=== PATIENT | female | born 1950 | race Caucasian/White ===

== ENCOUNTER 2024-07-04 07:03 | Emergency (ER) | payer MEDICARE, SELFPAY ==
[2024-07-04 07:09] VITALS: BP 138/85
--- NOTE | 2024-07-04 07:51 | ED.GENMED ---
History of Present Illness
General
Chief Complaint: Breathing Problem
Time Seen by Provider: 07/04/24 07:36
History of Present Illness
History of Present Illness:
74-year-old female presents to the emergency department with her daughter for evaluation of cough and shortness of breath for the past 3 days. Has had hot flashes and sweats as well. Cough is productive of yellow-green mucus. Initially began with
nasal congestion and sore throat but those symptoms have resolved and she is primarily complaining of chest congestion. Known history of COPD, current smoker with greater than [id number] history. No chest pain or leg edema.
Past History
Past History
ED Past Medical History: HTN
ED Past Surgical History: and Orthopedic (Lumbar discectomy)
Social History
Tobacco: Smoker
Alcohol: Occasional
Drug: None
Personal: Single
Living: alone
Employment: Retired
Family History
Family History: Hypertension and CAD
Review of Systems
Review of Systems
Allergies reviewed?: Yes
All Other Systems: ROS reviewed and negative except as documented in HPI and ROS
Phy Exam
Physical Exam
Physical Exam:
GEN: Well appearing, NAD, WDWN
Eyes: PERRLA, EOMs intact, no scleral icterus
HENT: NCAT, oral mucosa moist
Lungs: Tachypneic, no accessory muscle use, diminished breath sounds diffusely with mild expiratory wheezes
Cardiac: RRR, no M/R/G, no peripheral edema. Radial pulses 2+ bilat
Neuro: AO x 3
MSK: No gross deformity or ecchymosis. No edema. No digital clubbing
Skin: No rashes, petechiae. Normal color, no pallor or jaundice.
Psych: Calm, cooperative, proper hygiene
Scores
Heart Failure Risk
Heart Failure Risk Score: Not Applicable
Sepsis
Sepsis Screening
Sepsis Assessment: Sepsis Ruled Out
Sepsis Screen
Sepsis Screen: Sepsis Ruled Out
Date: 07/04/24
Time: 13:49
Course
Orders/Labs/Results
Orders:
Orders
07/04/24 07:43
Ipratropium/Albuterol Sulfate [Duoneb] 3 ml INH R NOW ONE
07/04/24 07:44
CR Chest - 2 Views Urgent
Comment:
Reason For Exam: cough SOB
07/04/24 07:58
COVID-19 Antigen Urgent
Source: Nasal Swab
Complete Blood Count/With Diff Urgent
Lactic Acid Q4H
Comment: CANCEL 2nd LACTIC ACID IF 1st LACTIC ACID IS LESS THAN 2
Influenza A+B Rapid Molecular Urgent
ZAIN Source: Nasal Swab
Specimen Description:
07/04/24 07:59
Comprehensive Metabolic Panel Urgent
Blood Culture Q30M
ZAIN Source: Blood/Venous
Specimen Description:
07/04/24 08:35
Blood Culture Q30M
ZAIN Source: Blood/Venous
Specimen Description:
07/04/24 09:08
Dexamethasone Sod Phosphate [Decadron] 8 mg IV NOW STA
Abnormal Lab Results
07/04/24 07/04/24
07:58 07:59
Absolute Neuts (auto) 7.9 H 10^3/uL
(1.4-6.5)
Absolute Lymphs (auto) 1.1 L 10^3/uL
(1.2-3.4)
Absolute Monos (auto) 1.2 H 10^3/uL
(0.1-0.6)
Neutrophils % 76.4 H %
(42.2-75.2)
Lymphocytes % 10.3 L %
(20.5-51.1)
Monocytes % 11.4 H %
(1.7-9.3)
Glucose 122 H mg/dl
(70-99)
07/04/24 07:58
07/04/24 07:59
Vital Signs
Initial and Last Documented VS:
Initial Vital Signs
Temp Pulse Resp BP Pulse Ox
97.6 F 90 16 138/85 97
07/04/24 07:09 07/04/24 07:09 07/04/24 07:09 07/04/24 07:09 07/04/24 07:09
Last Documented Vital Signs
Temp Pulse Resp BP Pulse Ox
97.6 F 69 14 133/69 98
07/04/24 07:09 07/04/24 09:15 07/04/24 09:15 07/04/24 09:00 07/04/24 09:15
MDM/Problems Addressed
MDM/Problems Addressed:
Imaging is reassuring, labs unremarkable. Likely bacterial bronchitis evidenced by patient's likely history of COPD and productive cough with purulent sputum. Will cover with antibiotics and steroids. Encouraged outpatient pulm follow-up
*Critical Care Note
Total Time (30-74mins, 75-104mins- exclusive of procedures): Not Applicable
ED Attending Note
-
Portions of this chart may have been created with voice recognition software.� Occasional wrong word or��sound alike� substitutions may have occurred due to the inherent limitations of voice recognition software.
Discharge Plan
Departure
Patient Disposition: Home (Routine Discharge)
Date of Disposition: 07/04/24
Time of Disposition: 09:06
Patient with high blood pressure during this ER visit?: No
Discharge Problem:
Acute bronchitis
Instructions: Acute Bronchitis, Adult (DC)
Prescriptions:
New
methylprednisolone [Medrol (Eduardo)] 4 mg tablets,dose pack
See Rx Instructions .ROUTE .COMPLEX Qty: 21 0RF
Rx Instructions:
for 6 days
doxycycline hyclate 100 mg tablet
100 mg PO BID 5 Days Qty: 10 0RF
albuterol sulfate 90 mcg/actuation HFA aerosol inhaler
2 puff inhalation Q6H PRN (Reason: shortness of breath or wheezing) Qty: 8.5 0RF
No Action
hydralazine 25 MG tablet
25 mg PO QID
benazepril 20 MG tablet
20 mg PO BID
atenolol 50 MG tablet
50 mg PO DAILY
fexofenadine [Cely] 180 mg Tablet
180 mg PO DAILY
Referrals:
Tee Mike MD [Active] -
Activity Restrictions/Additional Instructions:
Begin the antibiotics today; begin the steroid prescription tomorrow
Follow up with pulmonology
Interventions
Interventions:
*Risk Screen - Suicide Last Done: 07/04/24 07:09
*Neglect/Abuse Screening Last Done: 07/04/24 07:09
*ED- Fall Risk Assessment Last Done: 07/04/24 08:00
*ED COVID-19 Vaccine History Last Done: 07/04/24 08:00
*Nursing Disposition Last Done: 07/04/24 09:49
ED- Cardiac Assessment Last Done: 07/04/24 08:00
ED- Pulmonary Assessment Last Done: 07/04/24 08:00
Discharge Date and Time
Discharge Date/Time: 07/04/24 09:49
Print Language: HUNGARIAN
[2024-07-04] MEDS: DUONEB 3 ML INH (08:05)
[2024-07-04 08:11] LABS: % Basophils 0.8 % (0-2); % Eosinophils 0.8 % (0-6); % Immature Granulocytes 0.3 % (0-0.5); % Lymphocytes 10.3 % (20.5-51.1); % Monocytes 11.4 % (1.7-9.3); % Neutrophils 76.4 % (42.2-75.2); Absolute Basophils 0.1 10^3/uL (0-0.2); Absolute Eosinophils 0.1 10^3/uL (0-0.7); Absolute Lymphocytes 1.1 10^3/uL (1.2-3.4); Absolute Monocytes 1.2 10^3/uL (0.1-0.6); Absolute Neutrophils 7.9 10^3/uL (1.4-6.5); Hematocrit 41.9 % (37.0-47.0); Mean Corp Hgb Conc. 33.4 g/dL (33.0-37.0); Mean Corpuscular Hgb 29.2 pg (27.0-31.0); Mean Corpuscular Volume 87.3 fL (81.0-99.0); Mean Platelet Volume 10.2 fL (7.4-10.4); Nucleated Red Blood Cells % 0 %; Platelet Count 202 10^3/uL (130-400); Red Cell Dist. Width 13.9 % (11.5-14.5); White Blood Cell Count 10.3 10^3/uL (4.8-10.8)
[2024-07-04 08:15] VITALS: BP 127/75
[2024-07-04 08:25] LABS: COVID-19 Antigen Negative (Negative)
[2024-07-04 08:52] LABS: Lactic Acid 1.1 mmol/L (0.7-2.0)
[2024-07-04 08:57] VITALS: BP 124/82
[2024-07-04 09:00] VITALS: BP 133/69
[2024-07-04 09:10] LABS: ALT (SGPT) 16 U/L (0-35); AST (SGOT) 22 U/L (14-36); Albumin 4.3 g/dl (3.5-5.0); Alkaline Phosphatase 73 U/L (38-126); Blood Urea Nitrogen 17 mg/dl (7-17); Calcium 9.7 mg/dl (8.4-10.2); Carbon Dioxide 24 mmol/L (22-30); Chloride 103 mmol/L (98-107); Estimated Creatinine Clearance 65 ml/min; Glucose 122 mg/dl (70-99); Potassium 4.2 mmol/L (3.5-5.1); Sodium 139 mmol/L (135-145); Total Bilirubin 0.7 mg/dl (0.2-1.3); Total Protein 7.1 g/dl (6.3-8.2); eGFR > 60.00
[2024-07-04] MEDS: DECADRON 8 MG IV (09:17)
== END 2024-07-04 09:49 | disposition home or self-care (01) ==
LOC: EMR 07:03
PROVIDERS: Physician Assistant; EMERGENCY PHYSICIAN Emergency Medicine
DX: J20.9 Acute bronchitis, unspecified (principal); J44.0 Chronic obstructive pulmonary disease with (acute) lower respiratory infection; I10 Essential (primary) hypertension; F17.200 Nicotine dependence, unspecified, uncomplicated; Z11.52 Encounter for screening for COVID-19
CPT/HCPCS: 99284; 96374; 94640; 71046; 80053; 83605; 85025; 87040; 87502; 87811

== ENCOUNTER 2025-02-22 22:04 | Observation (INO) | payer MEDICARE, SELFPAY ==
[2025-02-22 13:48] VITALS: BP 180/76
[2025-02-22 14:15] LABS: Hematocrit 42.3 % (37.0-47.0); Hemoglobin 14.1 g/dL (12.0-16.0); Mean Corp Hgb Conc. 33.3 g/dL (33.0-37.0); Mean Corpuscular Volume 87.2 fL (81.0-99.0); Nucleated Red Blood Cells % 0 %; Platelet Count 160 10^3/uL (130-400); Red Cell Dist. Width 13.5 % (11.5-14.5)
[2025-02-22 14:38] LABS: ALT (SGPT) 27 U/L (0-35); AST (SGOT) 36 U/L (14-36); Albumin 4.5 g/dl (3.5-5.0); Alkaline Phosphatase 77 U/L (38-126); Blood Urea Nitrogen 15 mg/dl (7-17); Calcium 9.3 mg/dl (8.4-10.2); Carbon Dioxide 19 mmol/L (22-30); Chloride 100 mmol/L (98-107); Glucose 115 mg/dl (70-99); Potassium 4.4 mmol/L (3.5-5.1); Sodium 132 mmol/L (135-145); Total Protein 7.6 g/dl (6.3-8.2); eGFR > 60.00
[2025-02-22 17:54] VITALS: BMI 19.5
[2025-02-22 17:56] VITALS: BP 184/80
--- NOTE | 2025-02-22 18:38 | ED.GENMED ---
History of Present Illness
<DIO Chinchilla - Last Filed: 02/22/25 20:28>
General
Chief Complaint: Cold/Flu/URI Symptoms
Source: patient
Exam Limitations: none
Time Seen by Provider: 02/22/25 18:27
Nursing documentation reviewed up to this point in time: agreed with
History of Present Illness
History of Present Illness:
Patient is a 75-year-old female with history of COPD presents to the ER for evaluation. Patient woke up with a cold sweat cough subjective fevers. She tested herself for flu A and was positive today. She has a history of COPD. She does not wear
oxygen normally and is not aware of what her normal pulse ox is. She does smoke 2 cigarettes a day.
Past History
<DIO Chinchilla - Last Filed: 02/22/25 20:28>
Past History
ED Past Medical History: HTN
ED Past Surgical History: and Orthopedic (Lumbar discectomy)
Social History
Tobacco: Smoker
Alcohol: Occasional
Drug: None
Personal: Single
Living: alone
Employment: Retired
Family History
Family History: Hypertension and CAD
Phy Exam
<DIO Chinchilla - Last Filed: 02/22/25 20:28>
General Physical Exam
General Presentation: no apparent distress
General age: appears stated age
General Skin: warm and dry
General Habitus: normal
General Mental: alert
General Hydration: appears well hydrated
Cardiovascular Exam
Cardiovascular Exam: regular rate/rhythm, no murmur and normal peripheral pulses
Pulmonary Exam
Pulmonary Exam: no respiratory distress and other (decreased throughout slight exp wheezing b/l )
Neurological Exam
Neurological Exam: alert and oriented x3
Musculoskeletal Exam
Musculoskeletal Exam: full ROM
Skin Exam
Skin Exam: normal color and warm/dry
Psychiatric Exam
Psychiatric Exam: normal mood/affect
Course
<DIO Chinchilla - Last Filed: 02/22/25 20:28>
Orders/Labs/Results
Orders:
Orders
02/22/25 13:51
Chest [CR Chest - 2 Views ] Urgent
Comment:
Reason For Exam: sob copd flu positive
02/22/25 13:56
Complete Blood Count/With Diff Urgent
Comprehensive Metabolic Panel Urgent
02/22/25 17:57
COVID-19 Antigen Urgent
Source: Nasal Swab
Influenza A+B Rapid Molecular Urgent
ZAIN Source: Nasal Swab
Specimen Description:
02/22/25 18:43
Albuterol Sulfate [Ventolin Nebules] 7.5 mg INH R NOW STA
Dexamethasone Pf [Decadron] 10 mg PO NOW STA
Ipratropium Nebs [Atrovent Nebules] 1 mg INH R NOW STA
02/22/25 20:11
Oseltamivir Phosphate [Tamiflu] 75 mg PO NOW STA
02/22/25 21:32
Admit/Transfer Patient As Directed
Co-Sign Provider:
Level of Care: Observation services
Assign to:: Medical/Surgical
Physician / Group: Viky Malcolm
Diagnosis: influenza A
PRN Pain Medication Management As Directed
May give lesser potent ordered pain med per pt: Yes
preference::
Protocol:: Medication orders for pain may be administered in a
manner that supports deferring to patient preference
when the pt is:
- Requesting an ordered lesser potent pain medication.
Least to most potent pain medications are defined
as: acetaminophen < NSAID < tramadol < opioids
(morphine, oxycodone, hydromorphone).
- Requesting a lesser dose of the same medication IF
ORDERED.
- Requesting a less intrusive route of administration
if both routes are prescribed by the provider (PO <
IV).
02/22/25 21:33
Code Status As Directed
Resuscitation Status: Full Code
02/22/25 21:58
HydrALAZINE [Apresoline] 25 mg PO NOW STA
Lisinopril [Zestril] 20 mg PO NOW STA
02/22/25 22:37
Acetaminophen [Tylenol] 650 mg PO Q4HPRN PRN
Albuterol [ProAIR HFA INHALER] 2 puff INH Q6H PRN shortness of breath or wheezing
HydrALAZINE [Apresoline] 25 mg PO QID
Ipratropium/Albuterol Sulfate [Duoneb] 3 ml INH R Q4HPRN PRN
02/22/25 22:37
Activity As Directed
Activity Level: Ambulate
Intake/ Output As Directed
Frequency: Per unit guidelines
Vital Signs As Directed
Frequency: Per unit guidelines
Weight As Directed
Frequency: Once
Comment: on admission
Copd Education [RESP] Routine
O2 Therapy [RESP] Routine
Titrate/Wean O2 to maintain O2 sat greater than (%): 93
Special Instructions: adjust, if necessary, to avoid hyperoxia in CO2 retainers.
Use High Flow O2 if necessary
DX Deep Vein Thrombosis Video Routine
02/23/25 Breakfast
Regular
At Your Request: Full Participation
Does patient need a safe tray?: No
02/23/25 08:00
Atenolol [Tenormin] 50 mg PO DAILY
Ipratropium/Albuterol Sulfate [Duoneb] 3 ml INH R QID
Oseltamivir Phosphate [Tamiflu] 75 mg PO BID
Prednisone [Deltasone] 40 mg PO DAILY
benazepril 20 mg PO BID
fexofenadine 180 mg PO DAILY
02/23/25 18:00
Enoxaparin Sodium [Lovenox] 40 mg SC QPM
Abnormal Lab Results
02/22/25
13:56
Absolute Lymphs (auto) 0.7 L 10^3/uL
(1.2-3.4)
Absolute Monos (auto) 1.2 H 10^3/uL
(0.1-0.6)
Lymphocytes % 8.7 L %
(20.5-51.1)
Monocytes % 15.5 H %
(1.7-9.3)
Sodium 132 L mmol/L
(135-145)
Carbon Dioxide 19 L mmol/L
(22-30)
Glucose 115 H mg/dl
(70-99)
02/22/25 13:56
02/22/25 13:56
Vital Signs
Initial and Last Documented VS:
Initial Vital Signs
Temp Pulse Resp BP Pulse Ox
97.5 F 82 24 180/76 95
02/22/25 13:48 02/22/25 13:48 02/22/25 13:48 02/22/25 13:48 02/22/25 13:48
Last Documented Vital Signs
Temp Pulse Resp BP Pulse Ox
97.5 F 105 24 168/107 91
02/22/25 13:48 02/22/25 22:24 02/22/25 13:48 02/22/25 22:24 02/22/25 22:15
<Ruthann English MD - Last Filed: 02/22/25 22:44>
Orders/Labs/Results
Orders:
Orders
02/22/25 13:51
Chest [CR Chest - 2 Views ] Urgent
Comment:
Reason For Exam: sob copd flu positive
02/22/25 13:56
Complete Blood Count/With Diff Urgent
Comprehensive Metabolic Panel Urgent
02/22/25 17:57
COVID-19 Antigen Urgent
Source: Nasal Swab
Influenza A+B Rapid Molecular Urgent
ZAIN Source: Nasal Swab
Specimen Description:
02/22/25 18:43
Albuterol Sulfate [Ventolin Nebules] 7.5 mg INH R NOW STA
Dexamethasone Pf [Decadron] 10 mg PO NOW STA
Ipratropium Nebs [Atrovent Nebules] 1 mg INH R NOW STA
02/22/25 20:11
Oseltamivir Phosphate [Tamiflu] 75 mg PO NOW STA
02/22/25 21:32
Admit/Transfer Patient As Directed
Co-Sign Provider:
Level of Care: Observation services
Assign to:: Medical/Surgical
Physician / Group: Viky Malcolm
Diagnosis: influenza A
PRN Pain Medication Management As Directed
May give lesser potent ordered pain med per pt: Yes
preference::
Protocol:: Medication orders for pain may be administered in a
manner that supports deferring to patient preference
when the pt is:
- Requesting an ordered lesser potent pain medication.
Least to most potent pain medications are defined
as: acetaminophen < NSAID < tramadol < opioids
(morphine, oxycodone, hydromorphone).
- Requesting a lesser dose of the same medication IF
ORDERED.
- Requesting a less intrusive route of administration
if both routes are prescribed by the provider (PO <
IV).
02/22/25 21:33
Code Status As Directed
Resuscitation Status: Full Code
02/22/25 21:58
HydrALAZINE [Apresoline] 25 mg PO NOW STA
Lisinopril [Zestril] 20 mg PO NOW STA
02/22/25 22:37
Acetaminophen [Tylenol] 650 mg PO Q4HPRN PRN
Albuterol [ProAIR HFA INHALER] 2 puff INH Q6H PRN shortness of breath or wheezing
HydrALAZINE [Apresoline] 25 mg PO QID
Ipratropium/Albuterol Sulfate [Duoneb] 3 ml INH R Q4HPRN PRN
02/22/25 22:37
Activity As Directed
Activity Level: Ambulate
Intake/ Output As Directed
Frequency: Per unit guidelines
Vital Signs As Directed
Frequency: Per unit guidelines
Weight As Directed
Frequency: Once
Comment: on admission
Copd Education [RESP] Routine
O2 Therapy [RESP] Routine
Titrate/Wean O2 to maintain O2 sat greater than (%): 93
Special Instructions: adjust, if necessary, to avoid hyperoxia in CO2 retainers.
Use High Flow O2 if necessary
DX Deep Vein Thrombosis Video Routine
02/23/25 Breakfast
Regular
At Your Request: Full Participation
Does patient need a safe tray?: No
02/23/25 08:00
Atenolol [Tenormin] 50 mg PO DAILY
Ipratropium/Albuterol Sulfate [Duoneb] 3 ml INH R QID
Oseltamivir Phosphate [Tamiflu] 75 mg PO BID
Prednisone [Deltasone] 40 mg PO DAILY
benazepril 20 mg PO BID
fexofenadine 180 mg PO DAILY
02/23/25 18:00
Enoxaparin Sodium [Lovenox] 40 mg SC QPM
Abnormal Lab Results
02/22/25
13:56
Absolute Lymphs (auto) 0.7 L 10^3/uL
(1.2-3.4)
Absolute Monos (auto) 1.2 H 10^3/uL
(0.1-0.6)
Lymphocytes % 8.7 L %
(20.5-51.1)
Monocytes % 15.5 H %
(1.7-9.3)
Sodium 132 L mmol/L
(135-145)
Carbon Dioxide 19 L mmol/L
(22-30)
Glucose 115 H mg/dl
(70-99)
02/22/25 13:56
02/22/25 13:56
Vital Signs
Initial and Last Documented VS:
Initial Vital Signs
Temp Pulse Resp BP Pulse Ox
97.5 F 82 24 180/76 95
02/22/25 13:48 02/22/25 13:48 02/22/25 13:48 02/22/25 13:48 02/22/25 13:48
Last Documented Vital Signs
Temp Pulse Resp BP Pulse Ox
97.5 F 105 24 168/107 91
02/22/25 13:48 02/22/25 22:24 02/22/25 13:48 02/22/25 22:24 02/22/25 22:15
<DIO Chinchilla - Last Filed: 02/22/25 20:28>
MDM/Problems Addressed
MDM/Problems Addressed:
Patient is a 75-year-old female with COPD started with flu symptoms yesterday tested positive for flu A at home and positive here in the ER. Minimally hypoxic at 92% on room air decreased throughout slight wheezing. Will give an hour-long neb and
steroids and reassess. If improved and not hypoxic stable for discharge home. plan to start on tamiflu.
Patient remains hypoxic after nebs with ambulation she desaturated as low as 88% tachypneic. With history of COPD hypoxia and flu will recommend admission
Chronic conditions affecting care:
copd;smoker
<DIO Chinchilla - Last Filed: 02/22/25 20:28>
*Radiology
Radiology exam reviewed: radiology read reviewed
*Pulse Oximetry
SaO2: 88
Oxygen Mode of Delivery: Room air
Patient hypoxic: yes
*Critical Care Note
Total Time (30-74mins, 75-104mins- exclusive of procedures): Not Applicable
ED Attending Note
<DIO Chinchilla - Last Filed: 02/22/25 20:28>
-
Portions of this chart may have been created with voice recognition software.� Occasional wrong word or��sound alike� substitutions may have occurred due to the inherent limitations of voice recognition software.
<Ruthann English MD - Last Filed: 02/22/25 22:44>
ED Attending Note
Patient seen and examined by attending physician: Yes
I performed the substantive portion of visit, reviewed & personally made and approve the management plan that is documented in note by myself or GENA.: Yes
ED Attending Note:
75-year-old female with a history of COPD, recently confirmed influenza, presents with dyspnea. On exam, diffuse mild wheezing noted, heart regular rate and rhythm, abdomen soft and nontender. Mildly hypoxic. Patient will be admitted, respiratory
support. No chest pain.
Discharge Plan
Departure
Patient Disposition: Admit
Date of Disposition: 02/22/25
Time of Disposition: 20:25
Presentation/result/management discussed w/ accepting MD/DO: Hospitalist
Patient with high blood pressure during this ER visit?: No
Covid-19: Not Applicable
Discharge Problem:
Influenza A, hypoxia
Interventions
Interventions:
*General Assessment Last Done: 02/22/25 13:48
*Neglect/Abuse Screening Last Done: 02/22/25 13:48
*ED COVID-19 Vaccine History Last Done: 02/22/25 17:56
*ED Influenza Vaccine History Last Done: 02/22/25 17:56
[facility] Fall Risk Assessment Tool Last Done: 02/22/25 17:57
*Risk Screen - Suicide (C-SSRS) Last Done: 02/22/25 13:48
ED- Pulmonary Assessment Last Done: 02/22/25 17:56
[2025-02-22 18:40] LABS: COVID-19 Antigen Negative (Negative)
[2025-02-22] MEDS: VENTOLIN NEBULES 7.5 MG INH (18:50)
[2025-02-22] MEDS: ATROVENT NEBULES 1 MG INH (18:50)
[2025-02-22] MEDS: DECADRON 10 MG PO (18:52)
--- NOTE | 2025-02-22 20:30 | HPS.HSE ---
Addendum entered and electronically signed by Viky Malcolm DO 02/22/25 22:20:
I have seen and examined the patient, and discussed the patient with MARCY Vergara. I have reviewed and agree with her history and physical, assessment and plan of care as per below, with the following additions:
The patient was hypoxic at 88% in the beginning of my history and physical, and with repositioning, improved to 94% on RA. No respiratory distress. She is not on home O2, she smokes 2 cigarettes daily. No fever today. Had overnight nightsweats.
VSS, AF, BP elevated 184/80 , O2 currently 94% RA
Lungs- decreased tight breath sounds, no expiratory wheezing, rales RLL
CV RRR, no m/r/g
Abd soft, nt/nd
Neuro no focal deficits
#Influenza w underlying COPD exacerbation
-cont off O2 as long as pt maintains O2 greater than 92%
-Tamiflu, Prednisone, DuoNebs, supportive txt
#Uncontrolled HTN
-will give pm dose of BP meds and monitor BP, cont home meds
Additional plan of care as per below
Original Note:
Family Physician
-
Family Physician: * NONE
Chief Complaint
-
positive home swab for influenza
History of Present Illness
Patient is a 75-year-old female with past medical history significant for essential hypertension and COPD who presented to [facility] ED for evaluation of not feeling well and positive home swab for influenza. Patient stated that her granddaughter who was
not feeling well the other day came to cuddle in bed with her. Then yesterday she started with generalized body aches, productive cough and subjective fever. She notes she woke from a sleep sweaty. She reports today she has had some nausea and
diarrhea. Denies shortness of breath, chest pain, vomiting or urinary symptoms. In ED patient completed Neb treatment and was mildly hypoxic with ambulation, is currently resting with SpO2 mid 90s on room air.
Medical History
Past Medical History
Past Medical History: Reports Other
Additional Past Medical History:
essential hypertension
COPD
Past Surgical History: Reports Other
Additional Past Surgical History:
Social History
Tobacco: Smoker (2-cigarettes per day)
Alcohol: Occasional
Drug: Marijuana (smokes on weekends )
Living: With Family
Employment: Retired
Family History
Family History: Not pertinent
Allergies / Home Medications
Allergies reflects when Allergies were last updated in [facility].
Home Medications with original date entered in [facility]
Allergy/Medication List:
Allergies
Allergy/AdvReac Type Severity Reaction Status Date / Time
Flu vaccine Allergy Swelling Uncoded 02/22/25 13:47
Home Medications
atenolol 50 mg tablet 50 mg PO DAILY 04/09/17
benazepril 20 mg tablet 20 mg PO BID 04/09/17
hydralazine 25 mg tablet 25 mg PO QID 04/09/17
albuterol sulfate 90 mcg/actuation aerosol inhaler 2 puff inhalation Q6H PRN shortness of breath or wheezing #8.5 grams 07/04/24
fexofenadine 180 mg tablet 180 mg PO DAILY 07/04/24
Review of Systems
-
History Source: Patient
Constitutional: Reports Fever, Fatigue, Night Sweats and Chills
EENT: Denies Sore Throat
Respiratory: Reports Cough and Trouble Breathing
Cardiac: Denies Chest Pain, Diaphoresis, Palpitations or Syncope
Abdomen/GI: Reports Nausea and Diarrhea; Denies Abdominal Pain or Vomiting
: Denies Dysuria, Frequency or Urgency
Musculoskeletal: Reports Other (generalized body aches); Denies Joint Pain
Skin: Denies Rash
Neurological: Reports Weakness; Denies Dizzy, Headache or Numbness
Physical Exam
Vital Signs
Vital Signs
Temp Pulse Resp BP Pulse Ox
97.5 F 82 24 184/80 88
02/22/25 13:48 02/22/25 13:48 02/22/25 13:48 02/22/25 17:56 02/22/25 20:28
Physical Exam
General: Well Developed, Well Nourished, No Apparent Distress and Conversant
HEENT: NormoCephalic, PERRLA, Nose Appears Normal and Ears Appear Normal
Respiratory: Wheezes, Non Labored Respirations and Decreased Breath Sounds; No Rales, Rhonchi or Accessory Resp Muscle Use
Cardiac: S1/S2 and Regular Rhythm; No Murmur, Rub, Gallop or Peripheral Edema
GI: Soft, Non Tender, Non Distended and Normal Bowel Sounds
Musculoskeletal: No Clubbing, No Cyanosis and No Edema
Skin: Warm and IV/Catheter Site
Neuro: Awake and AO x 3
Psych: Calm and Intact Judgment/Insight
Laboratory Results
-
02/22/25 13:56
02/22/25 13:56
Laboratory Results
Total Bilirubin 0.4 mg/dl (0.2-1.3) 02/22/25 13:56
AST 36 U/L (14-36) 02/22/25 13:56
ALT 27 U/L (0-35) 02/22/25 13:56
Alkaline Phosphatase 77 U/L (38-126) 02/22/25 13:56
Data Reviewed
-
Diagnostic Radiology: Report Reviewed by me (CXR; Minor opacities in the right middle lobe and lingula, similar compared to the chest radiograph from 07/04/2024 suggesting atelectasis/scarring versus a chronic mild infectious/inflammatory process.)
Lab Data: Labs Reviewed by me (Na+ 132, )
Impression/Plan
-
IMPRESSION/PLAN:
#influenza A
generalized body aches, subjective fevers, nausea, diarrhea, home Influenza swab positive, productive cough, mild hypoxia with exertion in ED
Na+ 132
CXR: Minor opacities in the right middle lobe and lingula, similar compared to the chest radiograph from 07/04/2024 suggesting atelectasis/scarring versus a chronic mild infectious/inflammatory process.
Covid: negative
Influenza: Influenza A positive
- Admit to med/surg
- start Tamiflu
- start prednisone 40mg, possible taper?
- DuoNeb QID and PRN
- supportive care
#essential hypertension
- continue atenolol, benazepril and hydralazine
#COPD
- continue albuterol PRN and fexofenadine
Code status: full code
DVT prophylaxis: Lovenox sq
[2025-02-22] MEDS: TAMIFLU 75 MG PO (20:49)
[2025-02-22 21:01] VITALS: BP 170/87
[2025-02-22 22:00] VITALS: BP 168/107
[2025-02-22] MEDS: APRESOLINE 25 MG PO (22:24)
[2025-02-22] MEDS: ZESTRIL 20 MG PO (22:24)
[2025-02-22 22:35] VITALS: BP 156/88
[2025-02-22 22:38] VITALS: BMI 19.7
--- NOTE | 2025-02-22 23:25 | PTCARENOTE ---
Patient arrived to unit from ED on stretcher at 2230. Patient ambulated to bed w/o assist-gait steady and erect posture. Patient endorses pain r/t SCOTT-See MAY. Patient VSS-blood pressure in right arm hypotensive at 74/52, left arm 156/88 which pt
says is closer to baseline. Patient with good pulses B/L, Erythema to hands-See Wound Management Intervention & Nursing Shift Assx. Patient denies pain, paresthesia or discomfort in right arm. VOCATIONAL EDUCATION PROFESSIONAL made aware-no new orders at this time. Bed in
lowest position and locked, call barrera within reach, patient has no further concerns at this time.
[2025-02-22] MEDS: TYLENOL 650 MG PO (23:28)
[2025-02-23 07:05] VITALS: BP 143/75
[2025-02-23] MEDS: DUONEB 3 ML INH ×2 (07:48→11:43)
[2025-02-23] MEDS: TAMIFLU 75 MG PO (08:23)
[2025-02-23] MEDS: CLARITIN 10 MG PO (08:23)
[2025-02-23] MEDS: APRESOLINE 25 MG PO ×2 (08:23→12:31)
[2025-02-23] MEDS: ZESTRIL 20 MG PO (08:23)
[2025-02-23] MEDS: DELTASONE 40 MG PO (08:23)
[2025-02-23] MEDS: TENORMIN 50 MG PO (08:23)
--- NOTE | 2025-02-23 11:19 | W.PN.HOSP.TC ---
Today's Communication/Plan
-
see A/P
Assessment / Plan
Assessment / Plan
HPI: 75-year-old female with past medical history significant for essential hypertension and COPD who presented with weakness and positive home swab for influenza.
Patient stated that her granddaughter who was not feeling well the other day came to cuddle in bed with her. Then she started to have generalized body aches, productive cough and subjective fever, followed by night sweat, nausea and diarrhea.
Denies shortness of breath, chest pain etc.
In the ED, patient was mildly hypoxic with ambulation.
A/P:
# Influenza A infection
# Brief episode of acute hypoxic respiratory insufficiency, resolved
CXR: Minor opacities in the right middle lobe and lingula, similar compared to the chest radiograph from 07/04/2024 suggesting atelectasis/scarring versus a chronic mild infectious/inflammatory process.
Influenza A positive, COVID negative
treat with Tamiflu x5 days
s/p IV Decadron, cont prednisone 40 mg x5 days then stop
DuoNeb QID and PRN
supportive care
Check walking pulse Ox prior to DC
Counselled on smoking cessation and informed about nicotine replacement, pt to continue smoking cessation counselling with PCP outpt
# Mild hyponatremia
Sodium level 132 today
# Essential hypertension
continue atenolol, benazepril and hydralazine with hold parameter
# COPD
continue albuterol PRN and fexofenadine
Code status: full code
DVT prophylaxis: Lovenox SQ
DW RN
Anticipated Discharge: Today
Subjective/Interval History
-
Date of Service: February 23, 2025
Objective Data
-
Vital Signs:
Vital Signs
Temp Pulse Resp BP Pulse Ox
37.1 C 77 18 143/75 95
02/23/25 07:05 02/23/25 07:53 02/23/25 07:53 02/23/25 07:05 02/23/25 07:53
Review of Systems
-
History Source: Patient
All other systems: Reviewed and negative
Respiratory: Denies Cough or Trouble Breathing
Physical Exam
-
General: Well Developed, Well Nourished, No Apparent Distress, Comfortable and Conversant; Negative Respiratory Distress
HEENT: Normocephalic, Atraumatic, Nose Appears Normal and Ears Appear Normal; Negative Oxygen
Respiratory: Clear to Auscultation and Non Labored Respirations; Negative Wheezes or Accessory Resp Muscle Use
Cardiac: Regular Rhythm and S1/S2
GI: Soft, Nontender, Nondistended and Normal Bowel Sounds
Skin: Warm and Dry
Neuro: Awake, Alert, Oriented and AO x 3
Psych: Calm and Intact Judgement/Insight
Data Reviewed
-
Diagnostic Radiology: Report Reviewed by me
Labs: Labs Reviewed by me
--- NOTE | 2025-02-23 14:34 | W.DCSUMMARY ---
Discharge Summary
Discharge Data
Date of Admission: 02/22/25
Date of Discharge: 02/23/25
Total time spent discharging patient (in min): 40
-
Pending Results: No
Hospital Course
Principal Diagnosis:
Influenza A infection with brief episode of acute hypoxic respiratory insufficiency
Chronic Diagnoses:�
Essential hypertension, on atenolol, benazepril and hydralazine
COPD
Consultations:�
None
Procedures:�
None
Clinical course:�
This is a 75-year-old female with past medical history significant for essential hypertension and COPD who presented with weakness and positive home swab for influenza.
Patient stated that her granddaughter who was not feeling well the other day came to cuddle in bed with her. Then she started to have generalized body aches, productive cough and subjective fever, followed by night sweat, nausea and diarrhea.
Denies shortness of breath, chest pain etc.
In the ED, patient was mildly hypoxic with ambulation.
Problem 1:
Influenza A infection.
This was associated with a brief episode of acute hypoxic respiratory insufficiency which resolved.
The patient's chest x-ray showed minor opacities in the right middle lobe and lingula, similar compared to the chest radiograph from 07/04/2024 suggesting atelectasis/scarring versus a chronic mild infectious/inflammatory process.
She was started with Tamiflu which she can continue for a total of 5 days.
She also received steroid, and can continue with prednisone 40 mg x 5 days total.
Her walking pulse ox assessment prior to discharge showed no need for oxygen support.
She has been counseled on smoking cessation, and she can continue to discuss nicotine replacement with her PCP outpatient.
As for the rest of her medical problems, they were stable during her hospital stay.
Discharge Plan
-
Patient Disposition: Home (Routine Discharge)
Discharge Diagnosis/Procedures: Influenza A infection;
Brief episode of hypoxia (resolved)
Condition: Good
Diet: As tolerated
Activity: As tolerated
Driving Restrictions: As prior to admission
Activity Restrictions/Additional Instructions:
Discuss smoking cessation and nicotine replacement with your PCP
Referrals:
NONE,* [Family Provider, Internal Medicine] - in less than 1 week
Additional Discharge Medication Instructions: Continue Tamiflu and Prednisone for 5 days
Prescriptions:
New
prednisone 20 mg Tablet
40 mg PO DAILY 5 Days Qty: 10 0RF
oseltamivir 75 mg Capsule
75 mg PO BID 5 Days Qty: 10 0RF
Continued
hydralazine 25 MG tablet
25 mg PO QID
benazepril 20 MG tablet
20 mg PO BID
atenolol 50 MG tablet
50 mg PO DAILY
fexofenadine 180 mg Tablet
180 mg PO DAILY
albuterol sulfate 90 mcg/actuation HFA aerosol inhaler
2 puff inhalation Q6H PRN (Reason: shortness of breath or wheezing) Qty: 8.5 0RF
Discharge Orders:
Discharge Patient (As Directed); Ordered 02/23/25
Ordered By: Sparkle Banuelos
Discharge Date and Time
Print Language: VINCENTIAN
--- NOTE | 2025-02-23 14:44 | CM ---
Patient was in shower when CM attempted to visit. CM called to patient to review OBS status and patient stated that her PCP is her daughter and the she does not have an email and her daughter is on the phone and not available. Patient stated that
she is home and family supports are in place. CM will continue to follow for discharge planning needs.
Plan; home with no needs.
[2025-02-23 19:01] LABS: Hepatitis C Antibody Negative (Negative)
== END 2025-02-23 14:00 | disposition home or self-care (01) ==
LOC: 2 NORTH 22:04
PROVIDERS: Nurse Practitioner; Student in an Organized Health Care Education/Training Program; ADMITTING PHYSICIAN Internal Medicine; ATTENDING PHYSICIAN Internal Medicine; EMERGENCY PHYSICIAN Emergency Medicine
DX: J10.1 Influenza due to other identified influenza virus with other respiratory manifestations (principal); J10.2 Influenza due to other identified influenza virus with gastrointestinal manifestations; J44.1 Chronic obstructive pulmonary disease with (acute) exacerbation; I10 Essential (primary) hypertension; R09.02 Hypoxemia; F17.210 Nicotine dependence, cigarettes, uncomplicated; Z11.52 Encounter for screening for COVID-19; E87.1 Hypo-osmolality and hyponatremia
CPT/HCPCS: 71046; 80053; 85025; 86803; 87502; 87811; 94640; 99285; G0378